=== PATIENT | female | born 1970 | race Two or more races ===

== ENCOUNTER 2018-10-29 23:40 | Emergency (ER) | payer OTHER ==
[~2018-10-29] VITALS: Ht 165.1 cm; Wt 74.8 kg
[~2018-10-29 23:40] MED LIST: LEVSIN0.125 MG PO; PROTONIX40 MG PO; ZANTAC300 MG PO
== END 2018-10-30 03:34 | disposition home or self-care (01) ==
LOC: ER 23:40
DX: G43.909 Migraine, unspecified, not intractable, without status migrainosus (principal)

== ENCOUNTER 2024-05-29 11:35 | Outpatient (CLI) | payer OTHER | END 2024-05-29 11:48 | disposition home or self-care (01) | LOC: SONOGRAMA 11:35 | PROVIDERS: ATTEND Specialist | DX: R22.42 Localized swelling, mass and lump, left lower limb (principal) ==

== ENCOUNTER 2024-07-18 05:45 | Day surgery (SDC) | payer OTHER ==
[2024-07-11 08:28] VITALS: BP 126/84
[~2024-07-18] VITALS: Ht 165.1 cm; Wt 68.0 kg
[~2024-07-18 05:45] MED LIST changes: +CLONAZEPAM0.5 MG PO
[2024-07-18] MEDS ORDERED: CIPROFLOXACIN IN 5 % DEXTROSE 400 MG/200 ML PIGGYBAG IV ONE ×2 (09:58→10:30)
[2024-07-18] MEDS ORDERED: BUPIVACAINE HCL/MPF 0.5% 30ML VIAL ONE (09:59)
[2024-07-18] MEDS ORDERED: LIDOCAINE HCL 1% 10ML VIAL ONE (10:13)
[2024-07-18] MEDS ORDERED: LIDOCAINE HCL 1%/EPINEPHRINE 20ML VIAL IJ ONE ×2 (10:13→10:45)
[2024-07-18] MEDS ORDERED: LIDOCAINE HCL 1% 10ML VIAL IJ ONE (10:45)
== END 2024-07-18 13:10 | disposition home or self-care (01) ==
LOC: CIR.AMB 05:45
PROVIDERS: ATTEND Specialist
DX: D21.22 Benign neoplasm of connective and other soft tissue of left lower limb, including hip (principal); R22.42 Localized swelling, mass and lump, left lower limb; Z88.6 Allergy status to analgesic agent